=== PATIENT | male | born 1960 | race Caucasian/White ===

== ENCOUNTER 2024-07-25 14:48 | Emergency (ER) | payer OTHER, BC, SELFPAY ==
--- NOTE | ~2024-07-25 | XR_ITS ---
XR chest 2V Ordering provider: Deyanira Burton PA-C History: 63 years Male with . dizziness X 1 DAY . Comparison: None. FINDINGS: MEDIASTINUM: The cardiac silhouette is not enlarged. LUNGS: No effusions or pneumothorax. Small nodule in the right lower lobe area is seen measuring 8 mm . 3 months follow-up advised. Prominent bronchovascular markings in the left lower lobe area with possibility of atelectasis versus early pneumonia cannot be excluded. OTHER: No free air under the diaphragm. Degenerative changes of the spine. IMPRESSION: Prominent bronchovascular markings in the left lower lobe with minimal opacification suggestive of at electasis versus early pneumonia. Clinical correlation advised. Nodule in the right lower lobe area. 3 months follow-up advised. Reviewed, dictated and finalized at location A. IMPRESSION: Prominent bronchovascular markings in the left lower lobe with minimal opacific ation suggestive of atelectasis versus early pneumonia. Clinical correlation ad vised. Nodule in the right lower lobe area. 3 months follow-up advised.
--- NOTE | ~2024-07-25 | CT_ITS ---
EXAMINATION: CT brain wo con DATE: 07/25/2024 17:19 INDICATION: Dizziness TECHNIQUE: Computed tomography (CT) of the head was performed without intravenous contrast. Sagittal and coronal reconstructions were performed. The mA was adjusted according to patient size. Iterative reconstruction technique was employed. The dose-length product was 605.33 mGy-cm. COMPARISON: None FINDINGS: No acute intracranial hemorrhage, acute infarction or abnormal extra axial fluid collection. Ventricl es are normal and symmetric. No mass/mass effect. The orbits, paranasal sinuses and mastoid air cell s are normal. IMPRESSION: 1. Normal head CT. Reviewed, dictated and finalized at location A. IMPRESSION: 1. Normal head CT.
[2024-07-25 15:05] VITALS: BP 154/90; PULSE 109; RESP 16; TEMP 36.9; O2SAT 98
--- NOTE | 2024-07-25 15:16 | ECG_ITS ---
Test Date: 2024-07-25 15:26:54 Measurements Intervals [place] Rate: 101 P: 39 NH: 165 QRS: -6 QRSD: 111 T: 2 QT: 328 QTc: 426 Interpretive Statements SINUS TACHYCARDIA MODERATE INTRAVENTRICULAR CONDUCTION DELAY [110+ ms QRS DURATION] ABNORMAL RHYTHM ECG No previous ECG available for comparison Electronically Signed On 07-25-2024 15:42:39 CDT by Quang Shahid M.D.
--- NOTE | 2024-07-25 16:31 | ED.DIZZY ---
HPI - Dizziness General Chief Complaint: Dizziness <Deyanira Burton PA-C - Last Filed: 07/26/24 13:28> Stated Complaint: dizzy, flushed <Deyanira Burton PA-C - Last Filed: 07/26/24 13:28> Time Seen by Provider: 07/25/24 16:31 <Deyanira Burton PA-C - Last Filed: 07/26/24 13:28> Focused HPI: This is a 63 year old male that presents to the ER for dizziness. Reports he felt like he was going to pass out. Reports tingling in his left arm. Denies chest pain, shortness of breath. GENERAL: Well-appearing, well-nourished, and in no acute distress. HEAD: Normocephalic, atraumatic. CHEST: Clear to auscultation. ?No respiratory distress. HEART: Regular rate and rhythm.? NEURO: ?Alert and oriented x3. Patient screened in triage and initial orders placed.? ?Additional care and disposition to be based upon?diagnostic testing and treatment. <Deyanira Burton PA-C - Last Filed: 07/26/24 13:28> History of Present Illness HPI Narrative: 63-year-old male with history of hypertension presenting with lightheadedness. States that he was at work and had been standing for a couple of hours when he felt a ness of heat through his body and then he felt very lightheaded. [place] like he was about to pass out. No chest pain or shortness of breath. No recent leg swelling. States that he has had some tingling in his left arm. Currently, he states that he feels well. States that he does not drink much water, he mostly drinks soda. <Marisol Christensen MD - Last Filed: 07/29/24 18:10> Related Data Allergies/Adverse Reactions: Allergies Allergy/AdvReac Type Severity Reaction Status Date / Time No Known Allergies Allergy Verified 07/25/24 20:37 <Deyanira Burton PA-C - Last Filed: 07/26/24 13:28> Review of Systems Review of Systems: All systems reviewed & are unremarkable except as noted in HPI and below <Marisol Christensen MD - Last Filed: 07/29/24 18:10> [facility] Past Medical History Medical History: Medical History (Updated 07/26/24 @ 13:28 by Deyanira Burton PA-C) History of hyperlipidemia History of hypertension <Deyanira Burton PA-C - Last Filed: 07/26/24 13:28> Exam Narrative: GENERAL: Well-appearing, well-nourished, and in no acute distress. HEAD: Normocephalic, atraumatic. EYES: PERRLA and EOMI. ENT: Mucous membranes moist. NECK: Supple. CHEST: Clear to auscultation. No respiratory distress. HEART: Regular rate and rhythm ABDOMEN: Soft, nontender, nondistended EXTREMITIES: Normal range of motion. No edema. SKIN: Warm, dry, no rash. NEURO: No focal deficits. Alert and oriented x3. PSYCH: Normal mood and affect. <Marisol Christensen MD - Last Filed: 07/29/24 18:10> Course Vital Signs Vital signs: Vital Signs Temperature 98.4 F 07/25/24 15:05 Pulse Rate 109 H 07/25/24 15:05 Respiratory Rate 16 07/25/24 15:05 Blood Pressure 154/90 H 07/25/24 15:05 Pulse Oximetry 98 07/25/24 15:05 Oxygen Delivery Room Air 07/25/24 15:05 Temperature 98.4 F 07/25/24 15:05 Pulse Rate 88 07/25/24 23:00 Respiratory Rate 16 07/25/24 23:00 Blood Pressure 150/82 H 07/25/24 23:00 Pulse Oximetry 97 07/25/24 23:00 Oxygen Delivery Room Air 07/25/24 15:05 <Deyanira Burton PA-C - Last Filed: 07/26/24 13:28> Vital Signs Temperature 98.4 F 07/25/24 15:05 Pulse Rate 109 H 07/25/24 15:05 Respiratory Rate 16 07/25/24 15:05 Blood Pressure 154/90 H 07/25/24 15:05 Pulse Oximetry 98 07/25/24 15:05 Oxygen Delivery Room Air 07/25/24 15:05 Temperature 98.4 F 07/25/24 15:05 Pulse Rate 88 07/25/24 23:00 Respiratory Rate 16 07/25/24 23:00 Blood Pressure 150/82 H 07/25/24 23:00 Pulse Oximetry 97 07/25/24 23:00 Oxygen Delivery Room Air 07/25/24 15:05 <Marisol Christensen MD - Last Filed: 07/29/24 18:10> MDM - Dizziness MDM Narrative Medical decision making narrative: 63-year-old male presenting with an episode of lightheadedness. Vitals are stable. Exam remarkable for the above. EKG per my interpretation shows sinus tachycardia, no ST elevations or depressions. Blood work without significant abnormalities. Troponin is undetectable. CT brain shows no acute abnormalities. Chest x-ray is being read as atelectasis versus early pneumonia. Patient denies any infectious symptoms, no cough, no shortness of breath. Suspect that this represents atelectasis. On re-evaluation, the patient continues to deny any complaints. Discussed the reassuring workup. Feel he is safe for outpatient management. Strongly advised him to follow-up closely with his PCP. Discussed adequate hydration with water, Gatorade, Powerade, etc. Appropriate return precautions given. He is agreeable this plan. Discharged in stable condition. <Marisol Christensen MD - Last Filed: 07/29/24 18:10> Differential Diagnosis Differential diagnosis: Likely orthostatic hypotension and other ( Vasovagal syncope, dehydration) <Marisol Christensen MD - Last Filed: 07/29/24 18:10> Medical Records Attestation: I reviewed the patient's medical records. <Marisol Christensen MD - Last Filed: 07/29/24 18:10> Lab Data Attestation: I reviewed the patient's lab results. <Marisol Christensen MD - Last Filed: 07/29/24 18:10> Result diagrams: 07/25/24 20:46 07/25/24 20:46 <Deyanira Burton PA-C - Last Filed: 07/26/24 13:28> Labs: Lab Results 07/25/24 Range/Units 20:46 WBC 7.0 (4.5-10.0) K/mm3 RBC 4.64 (4.6-6.20) M/mm3 Hgb 14.2 (14.0-18.0) g/dL Hct 40.6 L (42.0-52.0) % MCV 87.5 (80-100) fl MCH 30.6 (26-34) pg MCHC 35.0 (32-36) g/dl RDW 13.0 (11.5-14.5) % Plt Count 144 L (150-375) k/mm3 MPV 10.3 (7.4-10.4) fl Immature Gran % (Auto) 0.1 (0-0.5) % Neut % (Auto) 60.0 (45.5-73.1) % Lymph % (Auto) 26.3 (18.3-44.2) % [place] % (Auto) 9.9 H (2.6-8.5) % Eos % (Auto) 3.3 (0-4.4) % Baso % (Auto) 0.4 (0.2-1.2) % Lymph # (Auto) 1.84 (0.9-3.2) K/mm3 [place] # (Auto) 0.7 H (0.1-0.6) K/mm3 Eos # (Auto) 0.2 (0-0.3) K/mm3 Baso # (Auto) 0.0 (0.0-0.1) K/mm3 Abs Immat Gran (auto) 0.01 (0.00-0.031) K/mm3 Absolute Neuts (auto) 4.2 (1.3-6.7) K/mm3 Absolute Nucleated RBC 0.000 (0.0-0.012) K/mm3 Nucleated RBC % 0.0 (0.0-0.2) % Sodium 137 (137-145) mmol/L Potassium 3.7 (3.4-5.0) mmol/L Chloride 100 (98-107) mmol/L Carbon Dioxide 29 (22-30) mmol/L Anion Gap 8 (4-12) mmol/L BUN 11 (9-20) mg/dL Creatinine 0.90 (0.7-1.3) mg/dL Estim Creat Clear Calc 111 ml/min Estimated GFR > 60 (59 - ) Glucose 162 H (65-110) mg/dL Calcium 9.5 (8.4-10.2) mg/dL Magnesium 1.8 (1.6-2.3) mg/dL Total Bilirubin 1.2 (0.2-1.3) mg/dL AST 65 H (17-59) U/L ALT 78 H (6-50) U/L Alkaline Phosphatase 102 (38-126) U/L Troponin I < 0.012 (0.000-0.034) ng/mL Total Protein 8.0 (6.3-8.2) g/dL Albumin 4.3 (3.5-5.1) g/dL <Deyanira Burton PA-C - Last Filed: 07/26/24 13:28> Lab Results 07/25/24 Range/Units 20:46 WBC 7.0 (4.5-10.0) K/mm3 RBC 4.64 (4.6-6.20) M/mm3 Hgb 14.2 (14.0-18.0) g/dL Hct 40.6 L (42.0-52.0) % MCV 87.5 (80-100) fl MCH 30.6 (26-34) pg MCHC 35.0 (32-36) g/dl RDW 13.0 (11.5-14.5) % Plt Count 144 L (150-375) k/mm3 MPV 10.3 (7.4-10.4) fl Immature Gran % (Auto) 0.1 (0-0.5) % Neut % (Auto) 60.0 (45.5-73.1) % Lymph % (Auto) 26.3 (18.3-44.2) % [place] % (Auto) 9.9 H (2.6-8.5) % Eos % (Auto) 3.3 (0-4.4) % Baso % (Auto) 0.4 (0.2-1.2) % Lymph # (Auto) 1.84 (0.9-3.2) K/mm3 [place] # (Auto) 0.7 H (0.1-0.6) K/mm3 Eos # (Auto) 0.2 (0-0.3) K/mm3 Baso # (Auto) 0.0 (0.0-0.1) K/mm3 Abs Immat Gran (auto) 0.01 (0.00-0.031) K/mm3 Absolute Neuts (auto) 4.2 (1.3-6.7) K/mm3 Absolute Nucleated RBC 0.000 (0.0-0.012) K/mm3 Nucleated RBC % 0.0 (0.0-0.2) % Sodium 137 (137-145) mmol/L Potassium 3.7 (3.4-5.0) mmol/L Chloride 100 (98-107) mmol/L Carbon Dioxide 29 (22-30) mmol/L Anion Gap 8 (4-12) mmol/L BUN 11 (9-20) mg/dL Creatinine 0.90 (0.7-1.3) mg/dL Estim Creat Clear Calc 111 ml/min Estimated GFR > 60 (59 - ) Glucose 162 H (65-110) mg/dL Calcium 9.5 (8.4-10.2) mg/dL Magnesium 1.8 (1.6-2.3) mg/dL Total Bilirubin 1.2 (0.2-1.3) mg/dL AST 65 H (17-59) U/L ALT 78 H (6-50) U/L Alkaline Phosphatase 102 (38-126) U/L Troponin I < 0.012 (0.000-0.034) ng/mL Total Protein 8.0 (6.3-8.2) g/dL Albumin 4.3 (3.5-5.1) g/dL <Marisol Christensen MD - Last Filed: 07/29/24 18:10> Imaging Data Radiologist's impression: ITS Impressions Chest X-Ray 07/25/24 17:18 IMPRESSION: Prominent bronchovascular markings in the left lower lobe with minimal opacification suggestive of atelectasis versus early pneumonia. Clinical correlation advised. Nodule in the right lower lobe area. 3 months follow-up advised. Head CT 07/25/24 17:21 IMPRESSION: 1. Normal head CT. <Marisol Christensen MD - Last Filed: 07/29/24 18:10> Critical Care Time Critical Care Time Critical Care Time: No <Marisol Christensen MD - Last Filed: 07/29/24 18:10> Discharge Plan Discharge Clinical Impression: Vasovagal near syncope <Deyanira Burton PA-C - Last Filed: 07/26/24 13:28> Patient Disposition: Home, Self-Care <Deyanira Burton PA-C - Last Filed: 07/26/24 13:28> Condition: Stable <Deyanira Burton PA-C - Last Filed: 07/26/24 13:28> Instructions: Antibiotic Form, Lightheadedness (ED) <Deyanira Burton PA-C - Last Filed: 07/26/24 13:28> Additional Instructions: Your workup today is reassuring. Please try to increase your intake of hydrating fluids such as water, Gatorade, Powerade, Pedialyte. Please follow-up closely with your PCP. If your symptoms worsen or other concerning symptoms arise, please return to the ER. <Deyanira Burton PA-C - Last Filed: 07/26/24 13:28> Follow-up/Referrals: PHYSICIAN NOT ON STAFF,NONSTAFF [Non-Staff] - <Deyanira Burton PA-C - Last Filed: 07/26/24 13:28> Stand Alone Forms: Work/School Release IP <Deyanira Burton PA-C - Last Filed: 07/26/24 13:28>
[2024-07-25 20:38] VITALS: BP 144/91; PULSE 86; RESP 16
[2024-07-25 20:51] LABS: Basophils Percent Auto 0.4 % (0.2-1.2); Eosinophils Absolute Auto 0.2 K/mm3 (0-0.3); Eosinophils Percent Auto 3.3 % (0-4.4); Hematocrit 40.6 % (42.0-52.0); Hemoglobin 14.2 g/dL (14.0-18.0); Immature Granulocyte Absolute 0.01 K/mm3 (0.00-0.031); Immature Granulocyte Percent A 0.1 % (0-0.5); Lymphocytes Absolute Auto 1.84 K/mm3 (0.9-3.2); Lymphocytes Percent Auto 26.3 % (18.3-44.2); Mean Corpuscular Hemoglobin 30.6 pg (26-34); Mean Corpuscular Volume 87.5 fl (80-100); Mean Platelet Volume 10.3 fl (7.4-10.4); Monocytes Absolute Auto 0.7 K/mm3 (0.1-0.6); Monocytes Percent Auto 9.9 % (2.6-8.5); Neutrophils Absolute Auto 4.2 K/mm3 (1.3-6.7); Platelet Count Result 144 k/mm3 (150-375); Red Blood Count 4.64 M/mm3 (4.6-6.20)
[2024-07-25 21:04] LABS: Magnesium 1.8 mg/dL (1.6-2.3)
[2024-07-25 21:06] LABS: Alanine Aminotransferase 78 U/L (6-50); Albumin Level 4.3 g/dL (3.5-5.1); Alkaline Phosphatase 102 U/L (38-126); Anion Gap 8 mmol/L (4-12); Aspartate Amino Transferase 65 U/L (17-59); Bilirubin,Total 1.2 mg/dL (0.2-1.3); Blood Urea Nitrogen 11 mg/dL (9-20); Calcium 9.5 mg/dL (8.4-10.2); Carbon Dioxide 29 mmol/L (22-30); Chloride 100 mmol/L (98-107); Estimated CRCL calculation 111 ml/min; Estimated Glomerular Filt Rate > 60; Glucose 162 mg/dL (65-110); Potassium 3.7 mmol/L (3.4-5.0); Sodium 137 mmol/L (137-145)
[2024-07-25 21:15] LABS: Troponin I < 0.012 ng/mL (0.000-0.034)
[2024-07-25] MEDS: SODIUM CHLORIDE 0.9% IV 1,000 ML 999 ML IV CONT (21:54)
[2024-07-25 23:00] VITALS: BP 150/82; PULSE 88; RESP 16; O2SAT 97
== END 2024-07-25 23:28 | disposition home or self-care (01) ==
PROVIDERS: Physician Assistant; Emergency Provider Emergency Medicine
DX: R55 Syncope and collapse (principal); I10 Essential (primary) hypertension; E78.5 Hyperlipidemia, unspecified
CPT/HCPCS: 36415; 70450; 71046; 80053; 83735; 84484; 85025; 93005; 96360; 99284; J7030